=== PATIENT | female | born 2000 | race Caucasian/White ===

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

== ENCOUNTER 2020-10-09 09:06 | Emergency (ER) | payer OTHER ==
[2020-10-09 09:44] LABS: BASOPHILS % (AUTO) 0.7 %; EOSINOPHILS # (AUTO) 0.1 10^3/uL (0.0-0.7); EOSINOPHILS % (AUTO) 1.3 %; HGB - HEMOGLOBIN 11.3 g/dL (12.0-16.0); LYMPHOCYTES # (AUTO) 1.6 10^3/uL (1.5-3.5); LYMPHOCYTES % (AUTO) 26.2 %; MEAN CORPUSCULAR HEMOGLOBIN 30.4 pg (27.0-31.0); MEAN CORPUSCULAR HGB CONC 32.9 g/dL (32.0-36.0); MEAN CORPUSCULAR VOLUME 92.2 fL (81.0-99.0); MEAN PLATELET VOLUME 9.3 fL (7.9-10.8); MONOCYTES # (AUTO) 0.5 10^3/uL (0.0-1.0); NEUTROPHILS # (AUTO) 3.9 10^3/uL (1.5-6.6); NEUTROPHILS % (AUTO) 63.6 %; PLT - PLATELET COUNT 270 10^3/uL (130-450); RED BLOOD COUNT 3.72 10^6/uL (4.20-5.40); RED CELL DISTRIBUTION WIDTH 12.4 % (12.0-15.0); WHITE BLOOD COUNT 6.1 x10^3/uL (4.8-10.8)
[2020-10-09 09:50] LABS: BILIRUBIN,URINE NEGATIVE (NEGATIVE); GLUCOSE, URINE (UA) NEGATIVE (NEGATIVE); HCG UR QUAL POSITIVE; KETONES,URINE (UA) NEGATIVE (NEGATIVE); LEUKOCYTE ESTERASE, URINE NEGATIVE (NEGATIVE); NITRITE,URINE NEGATIVE (NEGATIVE); OCCULT BLOOD,URINE NEGATIVE (NEGATIVE); PROTEIN,URINE NEGATIVE (NEGATIVE); UROBILINOGEN,URINE 0.2 (NORMAL) E.U./dL (NORMAL)
[2020-10-09 09:52] LABS: CLARITY,URINE CLEAR (CLEAR)
[2020-10-09 09:58] LABS: ALBUMIN 4.3 g/dL (3.2-5.5); ALBUMIN/GLOBULIN RATIO 1.6 (1.0-2.2); BILIRUBIN,TOTAL 0.7 mg/dL (0.2-1.0); CREATININE 0.5 mg/dL (0.4-1.0)
--- NOTE | 2020-10-09 10:33 | ED Physician Documentation ---
History of Present Illness - Stated complaint Stated Complaint: ABDOMINAL PX - Chief complaint Chief Complaint: Abd Pain - History obtained from History obtained from: Patient - Additonal information Additional information: Patient comes emergency department complaining of left lower quadrant pain that has been going on for about the last week. The patient is currently in her first trimester and is roughly 6 weeks along. She states her last menstrual period started approximately on August 22. She denies any vaginal discharge that is unusual or any vaginal bleeding. No lightheadedness or near syncope. She has been mildly nauseated but without vomiting. No dysuria or hematuria. No fever or chills. The patient has a history of being treated for chlamydia, but states that her symptoms were mild, and that she never had pelvic pain or fever at that time. She has not had any surgery or other instrumentation on her reproductive organs. No other abdominal surgeries. She denies any history of peptic ulcer disease or GERD. No history of kidney stones. No other complaints at this time. Review of Systems Ten Systems: 10 systems reviewed and negative Constitutional: reports: Reviewed and negative. denies: Fever, Chills Eyes: reports: Reviewed and negative Ears: reports: Reviewed and negative Nose: reports: Reviewed and negative Throat: reports: Reviewed and negative Cardiac: reports: Reviewed and negative Respiratory: reports: Reviewed and negative GI: reports: Abdominal Pain, Nausea. denies: Vomiting, Diarrhea : reports: Missed period, Now EGA, Reviewed and negative. denies: Dysuria, Frequency, Hematuria, Vaginal bleeding Skin: reports: Reviewed and negative Musculoskeletal: reports: Reviewed and negative Neurologic: reports: Reviewed and negative Psychiatric: reports: Reviewed and negative Endocrine: reports: Reviewed and negative Immunocompromised: reports: Reviewed and negative PD PAST MEDICAL HISTORY - Past Surgical History Past Surgical History: No - Present Medications Home Medications: Ambulatory Orders Medication Instructions Recorded Confirmed Ondansetron Odt [Zofran] 4 mg TL Q6H PRN #10 tablet 10/09/20 Pnv No.95/Ferrous Fum/Folic AC 1 cap PO DAILY 10/09/20 10/09/20 [ [place]] - Allergies Allergies/Adverse Reactions: Allergies Allergy/AdvReac Type Severity Reaction Status Date / Time No Known Drug Allergies Allergy Verified 10/09/20 09:12 - Social History Does the pt smoke?: No Smoking Status: Never smoker Does the pt drink ETOH?: No Does the pt have substance abuse?: No - Immunizations Immunizations are current?: Yes PD ED PE NORMAL - Vitals Vital signs reviewed: Yes - General General: Alert and oriented X 3, No acute distress - HEENT HEENT: Atraumatic, PERRL, EOMI, Moist mucous membranes - Neck Neck: Supple, no meningeal sign - Cardiac Cardiac: RRR, No murmur - Respiratory Respiratory: No respiratory distress, Clear bilaterally - Abdomen Abdomen: Soft, Non distended, Other (Moderate left lower quadrant abdominal pain, extending to the superior pubic region, which is a little less tender. No rebound or guarding.) - Back Back: No CVA TTP - Derm Derm: Normal color, Warm and dry, No rash - Extremities Extremities: No deformity, No edema, No calf tenderness / cord - Neuro Neuro: Alert and oriented X 3 - Psych Psych: Normal mood, Normal affect Results - Vitals Vitals: Oxygen O2 Source Room air - Labs Labs: Laboratory Tests 10/09/20 10/09/20 10/09/20 09:25 09:30 09:30 WBC 6.1 RBC 3.72 L Hgb 11.3 L Hct 34.3 L MCV 92.2 MCH 30.4 MCHC 32.9 RDW 12.4 Plt Count 270 MPV 9.3 Neut # (Auto) 3.9 Lymph # (Auto) 1.6 [place] # (Auto) 0.5 Eos # (Auto) 0.1 Baso # (Auto) 0.0 Absolute Nucleated RBC 0.00 Nucleated RBC % 0.0 Sodium 137 Potassium 3.6 Chloride 105 Carbon Dioxide 23 Anion Gap 9.0 BUN 8 Creatinine 0.5 Estimated GFR (MDRD) 157 Glucose 91 Calcium 9.0 Total Bilirubin 0.7 AST 15 ALT 15 Alkaline Phosphatase 69 Total Protein 7.0 Albumin 4.3 Globulin 2.7 Albumin/Globulin Ratio 1.6 Lipase 27 HCG, Quant Urine Color YELLOW Urine Clarity CLEAR Urine pH 7.0 Ur Specific [place] 1.020 Urine Protein NEGATIVE Urine Glucose (UA) NEGATIVE Urine Ketones NEGATIVE Urine Occult Blood NEGATIVE Urine Nitrite NEGATIVE Urine Bilirubin NEGATIVE Urine Urobilinogen 0.2 (NORMAL) Ur Leukocyte Esterase NEGATIVE Ur Microscopic Review NOT INDICATED Urine Culture Comments NOT INDICATED Urine HCG, Qual POSITIVE 10/09/20 09:30 WBC RBC Hgb Hct MCV MCH MCHC RDW Plt Count MPV Neut # (Auto) Lymph # (Auto) [place] # (Auto) Eos # (Auto) Baso # (Auto) Absolute Nucleated RBC Nucleated RBC % Sodium Potassium Chloride Carbon Dioxide Anion Gap BUN Creatinine Estimated GFR (MDRD) Glucose Calcium Total Bilirubin AST ALT Alkaline Phosphatase Total Protein Albumin Globulin Albumin/Globulin Ratio Lipase HCG, Quant 57670.00 Urine Color Urine Clarity Urine pH Ur Specific [place] Urine Protein Urine Glucose (UA) Urine Ketones Urine Occult Blood Urine Nitrite Urine Bilirubin Urine Urobilinogen Ur Leukocyte Esterase Ur Microscopic Review Urine Culture Comments Urine HCG, Qual - Rads (name of study) ultrasound OB 1st trimester/TV Radiology: Final report received, See rad report (Viable 6-week 1 day IUP. Large corpus luteum cyst noted on left ovary by US tech.) PD MEDICAL DECISION MAKING - ED course Complexity details: reviewed results, re-evaluated patient, considered differential, d/w patient ED course: Patient was worked up with labs and urinalysis, and found to have a quantitative hCG of over 43,000. Urinalysis was negative for infection. Ultrasound was ordered. , And showed a viable 6-week 1 day IUP. The agriculture technician did report to me that she had also noted a large corpus luteum cyst on the left ovary. I discussed the findings with the patient, and that we have not found any emergent or serious cause of her left abdominal pelvic pain. I suspect that some of the pain she is having is from the increased weight on the ovary from the cyst and I discussed with her that this will diminish in time. We discussed the need for follow-up with an [employer]. Patient is in the [facility] and states she has access to the services through the [facility]. We have discussed the usual indications for return. Departure - Departure Disposition: 01 Home, Self Care Clinical Impression: First trimester , Corpus luteum cyst of left ovary Abdominal pain Qualifiers: Abdominal location: left lower quadrant Qualified Code(s): R10.32 - Left lower quadrant pain Condition: Stable Instructions: ED Cyst Ovarian, ED Care Prescriptions: Ondansetron Odt [Zofran] 4 mg TL Q6H PRN #10 tablet PRN Reason: Nausea / Vomiting Comments: Your labs show an appropriate level of hormones for your stage of , and your ultrasound shows a that is in the uterus right at about 6 weeks and 1 day. You have a large related cyst on your left ovary which is most likely part of the cause of your pain. This will resolve over time and you should notice an improvement in your pain. You may take Tylenol as needed and you may also take Zofran as needed for the nausea. Please follow-up with your OB as planned. If you develop any vaginal bleeding or is severely worsening pain, or if you have fevers, please return to the emergency department Discharge Date/Time: 10/09/20 11:42
--- NOTE | 2020-10-09 11:27 | Ultrasound Report ---
PROCEDURE: OB First Trimester w/TV INDICATIONS: LT PELVIC PAIN, POS PREG OUTSIDE/PRIOR DATING DATA: Last menstrual period (LMP): 08/22/2020. LMP-based estimated date of delivery ([place]): 05/29/2021. TECHNIQUE: Real-time scanning was performed of the fetus and maternal pelvic organs, with image documentation. Endovaginal scanning was also performed to better visualize the fetus and maternal ovaries. COMPARISON: None. FINDINGS: Embryo: There is a gestational sac in the uterine fundus measuring 1.8 cm in mean diameter. Within t he gestational sac there is approximately 5 mm fetus. The average ultrasound age based on this crown- rump length is 6 weeks 1 day. heart rate is detected at 108 bpm. Measurement variability in dating: +/- 4 weeks by LMP, +/- 7 days by mean sac diameter (use before 6 weeks gestation if crown-rump length not able to be measured), +/- 5 days by crown-rump length (6-12 weeks gestation). Maternal organs: Ovaries within normal limits. Limited images through the kidneys demonstrate no hy dronephrosis. IMPRESSION: Findings other single live intrauterine gestation with gestational age of approximately 6 weeks 1 day . Reviewed by: Fidel Galeana MD on 10/09/2020 11:25 AM PST Approved by: Fidel Galeana MD on 10/09/2020 11:25 AM PST Station ID: [id number]
[2020-10-09 11:44] VITALS: BP 103/62
== END 2020-10-09 11:42 | disposition home or self-care (01) ==
LOC: ED 09:06
DX: O34.81 Maternal care for other abnormalities of pelvic organs, first trimester (principal); N83.12 Corpus luteum cyst of left ovary; O99.891 Other specified diseases and conditions complicating pregnancy; R10.32 Left lower quadrant pain; Z3A.01 Less than 8 weeks gestation of pregnancy
CPT/HCPCS: 36415; 80053; 81001; 81003; 81025; 83690; 84702; 85025; 87086; 99284; 99285